=== PATIENT | male | born 1975 | race Caucasian/White ===

== ENCOUNTER 2019-03-24 12:55 | Emergency (ER) | payer OTHER ==
[~2019-03-24] VITALS: Ht 167.6 cm; Wt 80.3 kg
[2019-03-24 13:19] LABS: HEMATOCRIT 40.9 % (42.0-52.0); HEMOGLOBIN 13.9 gm/dL (14.0-18.0); MCH 30.5 pg (26.0-34.0); MCHC 34.1 g/dL (28.0-37.0); MCV 89.4 fL (80.0-100.0); MPV 8.4 fl. (7.2-11.1); NUCLEATED RBCS 0 /100WBC; PLATELET COUNT* 213 thou/uL (150-400); RBC 4.58 mil/uL (4.50-6.00); RDW-CV 13.4 % (10.5-14.5); WBC 16.9 thou/uL (4.0-11.0)
[2019-03-24 13:26] LABS: ANION GAP 14 mmol/L (7-16); BUN 14 mg/dL (7-18); CALCIUM 9.3 mg/dL (8.5-10.1); CHLORIDE 99 mmol/L (98-107); CO2 22 mmol/L (21-32); GLUCOSE 95 mg/dL (70-99); POTASSIUM 3.9 mmol/L (3.5-5.1); SODIUM 135 mmol/L (136-145)
[2019-03-24 13:36] LABS: ALBUMIN 3.8 g/dL (3.4-5.0); ALKALINE PHOSPHATASE 154 U/L (46-116); LIPASE 71 U/L (73-393); NT-PRO BRAIN NAT PEPTIDE 19 pg/mL (<300); SGOT 84 U/L (15-37); SGPT 179 U/L (30-65); TOTAL BILIRUBIN 0.8 mg/dL (<0.1-1.0); TROPONIN-I LEVEL <0.06 ng/mL (<0.06)
[2019-03-24 13:37] LABS: INR 0.9; PROTIME 9.7 Seconds (9.20-11.50)
[2019-03-24 13:56] LABS: ABSOLUTE BASOPHILS 0.2 thou/uL (0.0-0.2); ABSOLUTE LYMPHOCYTES 1.7 thou/uL (0.8-5.3); ABSOLUTE MONOCYTES 0.3 thou/uL (0.0-1.2); ABSOLUTE NEUTROPHILS 14.7 thou/uL (1.6-8.1); ATYPICAL LYMPHS 1 %
[2019-03-24 13:57] LABS: PLATELET ESTIMATE ADEQUATE
[2019-03-24 14:39] LABS: URINE BILIRUBIN NEGATIVE (Negative); URINE BLOOD NEGATIVE (Negative); URINE CLARITY CLEAR; URINE COLOR YELLOW; URINE GLUCOSE-RANDOM NEGATIVE (Negative); URINE KETONES 1+ (Negative); URINE LEUKOCYTES-REFLEX NEGATIVE (Negative); URINE NITRITE-REFLEX NEGATIVE (Negative); URINE PROTEIN NEGATIVE (Negative); URINE SPECIFIC GRAVITY 1.015 (1.005-1.030); URINE UROBILINOGEN 0.2 E.U./dl (0.2-1.0)
[2019-03-24 14:49] LABS: AMP/METHAMP POSITIVE (Negative); BARBITURATES Negative (Negative); BENZODIAZEPINES Negative (Negative); COCAINE Negative (Negative); METHADONE Negative (Negative); OPIATES Negative (Negative); PCP Negative (Negative); THC POSITIVE (Negative)
--- NOTE | 2019-03-24 15:30 | EKG ---
[place] [address] ELECTROCARDIOGRAM REPORT Name: ZOYA FERNANDEZREDO Room: [facility]#: [id number] Admission: 03/24/19 Attend Phys: Discharge: Date of : 75 Report #: [id number] THIS REPORT FOR: //name// [facility] ED Test Date: 2019-03-24 Test Time: 12:58:51 Pat Name: ANNA FERNANDEZ Department: Room: Gender: [place] [employer]: RAJESH : 1975 Requested By: Chandler Hickey Order Number: [id number] MD: Filipe Zambrano Measurements Intervals [place] Rate: 115 P: 10 MT: 112 QRS: 23 QRSD: 103 T: 62 QT: 317 QTc: 439 Interpretive Statements Sinus tachycardia RSR' in V1 or V2, right VCD or RVH No previous ECG available for comparison Electronically Signed On 03-24-2019 15:29:52 CDT by Filipe Zambrano [email or web address] <ELECTRONICALLY SIGNED> By: Filipe Zambrano MD, [facility] 03/24/19 1529 1258 [id number] Filipe Zambrano MD, FACC /EPI
[2019-03-24] MEDS ORDERED: TRAMADOL 50 MG50 MG PO (15:46)
[2019-03-24 15:58] VITALS: BP 122/77
== END 2019-03-24 15:59 | disposition home or self-care (01) ==
LOC: M.ERS 12:55
PROVIDERS: Emergency Medicine
DX: R07.89 Other chest pain (principal); F17.210 Nicotine dependence, cigarettes, uncomplicated